=== PATIENT | male | born 1985 | race Caucasian/White ===

== ENCOUNTER 2018-12-20 17:59 | Emergency (ER) | payer MEDICAID ==
[~2018-12-20] VITALS: Ht 177.8 cm; Wt 100.2 kg
[2018-12-20 18:07] VITALS: BP_SYST 106
--- NOTE | 2018-12-20 18:35 | NUR ---
Patient to ER bed 01 to gown for evaluation. Side rails up. Report given to TAMARA GONZALEZ.
--- NOTE | 2018-12-20 18:37 | NUR ---
Patient is awake, alert, and oriented x4. Mother is at bedside, states they went to urgent care and they said he needed an ultrasound done to his legs. Mother states he has a history of surgery 30 years ago and denies any other medical history. Patient presents with bilateral swollen lower extremities, non-pitting.
--- NOTE | 2018-12-20 18:42 | NUR ---
ER WAN Villalobos at bedside examining patient.
[2018-12-20 19:09] LABS: CALCIUM 8.6 mg/dL (8.4-11.0); CREATININE 0.96 mg/dL (0.55-1.30); POTASSIUM 4.2 mmol/L (3.5-5.1)
[2018-12-20 19:13] LABS: ALBUMIN 3.7 g/dL (3.4-4.8); TOTAL BILIRUBIN 0.4 mg/dL (0.0-1.0)
[2018-12-20 19:29] LABS: HEMATOCRIT 38.4 % (36-54); HEMOGLOBIN 12.6 g/dL (14.0-18.0); MEAN CORPUSCULAR HEMOGLOBIN 29 pg (27-31); MEAN CORPUSCULAR HGB CONC 33 % (32-36); MEAN CORPUSCULAR VOLUME 88 fL (79.0-98.0); RED BLOOD CELL COUNT(AUTO) 4.34 MIL/uL (4.2-6.2); WHITE BLOOD COUNT (AUTO) 6.4 K/uL (4.8-10.8)
[2018-12-20 19:30] LABS: BASOPHILS # (AUTO) 0.1 K/uL (0.0-0.2); BASOPHILS % (AUTO) 0.9 % (0.0-2.0); EOSINOPHILS % (AUTO) 0.7 % (0.0-4.0); LYMPHOCYTES # (AUTO) 1.2 K/uL (1.0-5.5); LYMPHOCYTES % (AUTO) 18.5 % (20.5-51.5); MONOCYTES # (AUTO) 0.5 K/uL (0.0-1.0); NEUTROPHILS # (AUTO) 4.6 K/uL (1.8-7.7); NEUTROPHILS % (AUTO) 71.9 % (40.0-70.0); PLATELET COUNT (AUTO) 214 K/uL (130-430); RED CELL DISTRIBUTION WIDTH 14.2 % (9.0-15.0)
[2018-12-20 20:46] VITALS: BP_SYST 112
--- NOTE | 2018-12-20 20:46 | NUR ---
Patient given written and verbal discharge instructions and verbalizes understanding. ER MD discussed with patient the results and treatment provided. Patient in stable condition. ID arm band removed. No Rx given. Patient educated on pain management and to follow up with PMD. Pain Scale 0/10. Opportunity for questions provided and answered.
[2018-12-20 20:52] LABS: PROTHROMBIN TIME 10.1 SECS (9.5-12.5)
== END 2018-12-20 20:46 | disposition home or self-care (01) ==
LOC: SED 17:59
DX: R60.0 Localized edema (principal); I77.6 Arteritis, unspecified
CPT/HCPCS: 36415; 71045; 80053; 83880; 85025; 85610-TC; 85730-TC; 93970; 99284